=== PATIENT | female | born 1980 | race Two or more races ===

== ENCOUNTER → 2016-11-04 | Outpatient (CLI) | payer SELFPAY | LOC: RAD 13:20 → MERGE 13:20 | PROVIDERS: ATTEND Nurse Practitioner Women's Health | DX: O36.80X0 Pregnancy with inconclusive fetal viability, not applicable or unspecified (principal) ==

== ENCOUNTER → 2016-11-04 | Outpatient (CLI) | payer SELFPAY | LOC: MERGE 12:00 → RAD 13:30 | PROVIDERS: ATTEND Nurse Practitioner Women's Health | DX: O36.80X0 Pregnancy with inconclusive fetal viability, not applicable or unspecified (principal) | CPT/HCPCS: 76805 ==

== ENCOUNTER → 2016-12-09 | Outpatient (CLI) | payer SELFPAY ==
--- NOTE | 2016-12-09 16:58 | RADIOLOGY REPORT (SQ) ---
EXAM DESCRIPTION: U/S OB 14+ TRNABD 1GES W/O DOP COMPLETED DATE/TIME: 12/09/2016 4:25 pm REASON FOR STUDY: ENCOUNTER FOR SUPERVISION OF OTHER NORMAL , SECOND TRIMESTER Z34.82 ENCO UNTER FOR SUPRVSN OF NORMAL , SECOND TRI COMPARISON: 11/04/2016 TECHNIQUE: Static and Dynamic grayscale imaging performed of gravid uterus using transabdominal appr oach. Additional selected color Doppler and spectral images recorded. All stored on PACS. LIMITATIONS: None. FINDINGS: EGA: 19 weeks 6 days. LOUIS: 04/29/2017. EFW: 324 G. PERCENTILE: Not applicable. Fetus less than or equal to 20 weeks gestation. ERIC: Largest pocket is 5.8 cm. PLACENTA: Anterior location. PRESENTATION: Breech. ANATOMY: HEART RATE: 147 beats per minute. FOUR CHAMBER HEART: Visualized. THREE VESSEL CORD: Yes. CORD INSERTION: Visualized. KIDNEYS AND BLADDER: Visualized. Appear normal. STOMACH: Visualized. Appears normal. SPINE: Limited visualization due to positioning. No gross abnormalities. BRAIN AND LATERAL VENTRICLES: Inadequately visualized. OTHER: No other significant finding. MATERNAL ADNEXA: Maternal ovaries not visualized. CERVICAL LENGTH: Not measured. Closed. OTHER: No other significant finding. IMPRESSION: LIVING INTRAUTERINE . ESTIMATED GESTATIONAL AGE 19 WEEKS 6 DAYS. NO VISUALIZED ANOMALIES. Trimester of : Second trimester - 13 weeks 1 day to 27 weeks 6 days. TECHNICAL DOCUMENTATION: JOB ID: [id number] [employer]- All Rights Reserved
== END ==
LOC: RAD 15:14
PROVIDERS: ATTEND Nurse Practitioner Women's Health
DX: Z34.82 Encounter for supervision of other normal pregnancy, second trimester (principal)
CPT/HCPCS: 76805

== ENCOUNTER → 2016-12-31 | Outpatient (CLI) | payer SELFPAY ==
--- NOTE | 2016-12-31 15:17 | RADIOLOGY REPORT (SQ) ---
EXAM DESCRIPTION: U/S OB LIMITED COMPLETED DATE/TIME: 12/31/2016 2:23 pm REASON FOR STUDY: ENCOUNTER FOR SUPERVISON OF OTHER NORMAL , SECOND TRIMESTER Z34.82 ENCOU NTER FOR SUPRVSN OF NORMAL , SECOND TRI COMPARISON: 12/09/2016 TECHNIQUE: Limited transabdominal grayscale ultrasound for evaluation of specific requested obstetri marino parameters. LIMITATIONS: None FINDINGS: Additional imaging of the brain and spine was performed. No abnormalities. Anterior placenta, three-vessel cord, breech orientation, normal amniotic fluid volume. Estimated fe angelica weight today, 540 g, at the 66th percentile. IMPRESSION: LIMITED OBSTETRICAL ULTRASOUND WITH MEASURED PARAMETERS DELINEATED ABOVE. Trimester of : Third trimester - 28 weeks to delivery. TECHNICAL DOCUMENTATION: JOB ID: [id number] [employer]- All Rights Reserved
== END ==
LOC: RAD 12:56
PROVIDERS: ATTEND Nurse Practitioner Women's Health
DX: Z34.82 Encounter for supervision of other normal pregnancy, second trimester (principal)
CPT/HCPCS: 76815

== ENCOUNTER 2017-03-26 16:40 | Emergency (ER) | payer SELFPAY ==
[2017-03-26 16:55] VITALS: BP 117/59
--- NOTE | 2017-03-26 17:53 | ER Document Report ---
ED General - General Chief Complaint: Dizziness Stated Complaint: DIZZINESS, BLOOD PRESSURE PROBLEMS Time Seen by Provider: 03/26/17 17:52 Mode of Arrival: Ambulatory Information source: Patient Notes: 36-year-old female who is approximately 33 weeks presents with complaints of abdominal pain. Patient notes a clicking sensation consistent with contractions. Patient denies any fevers or chills nausea vomiting or diarrhea Friend who is a [employer] was concerned about high blood pressure patient's blood pressure here is normal TRAVEL OUTSIDE OF THE [place] IN LAST 30 DAYS: No - HPI Onset: Yesterday Onset/Duration: Sudden Quality of pain: Cramping Severity: Mild Pain Level: 1 Associated symptoms: Other Exacerbated by: Denies Relieved by: Denies Similar symptoms previously: No Recently seen / treated by doctor: No - Related Data Allergies/Adverse Reactions: No Known Allergies Allergy (Verified 03/26/17 16:52) Past Medical History - Social History Smoking Status: Never Smoker Cigarette use (# per day): No Chew tobacco use (# tins/day): No Smoking Education Provided: No Family History: Reviewed & Not Pertinent Patient has suicidal ideation: No Patient has homicidal ideation: No Renal/ Medical History: Denies: Hx Peritoneal Dialysis - Immunizations Hx Diphtheria, Pertussis, Tetanus Vaccination: No Review of Systems - Review of Systems Notes: REVIEW OF SYSTEMS: CONSTITUTIONAL : Denies fever, chills, or sweats. Denies recent illness. EENT: Denies eye, ear, throat, or mouth pain or symptoms. Denies nasal or sinus congestion or discharge. Denies throat, tongue, or mouth swelling or difficulty swallowing. CARDIOVASCULAR: Denies chest pain. Denies palpitations or racing or irregular heart beat. Denies ankle edema. RESPIRATORY: Denies cough, cold, or chest congestion. Denies shortness of breath, difficulty breathing, or wheezing. GASTROINTESTINAL: Denies abdominal pain or distention. Denies nausea, vomiting , or diarrhea. Denies blood in vomitus, stools, or per rectum. Denies black, tarry stools. Denies constipation. GENITOURINARY: Denies difficulty urinating, painful urination, burning, frequency, blood in urine, or discharge. FEMALE GENITOURINARY: Denies vaginal bleeding, heavy or abnormal periods, irregular periods. Denies vaginal discharge or odor. MUSCULOSKELETAL: Denies back or neck pain or stiffness. Denies joint pain or swelling. SKIN: Denies rash, lesions or sores. HEMATOLOGIC : Denies easy bruising or bleeding. LYMPHATIC: Denies swollen, enlarged glands. NEUROLOGICAL: Denies confusion or altered mental status. Denies passing out or loss of consciousness. Denies dizziness or lightheadedness. Denies headache. Denies weakness or paralysis or loss of use of either side. Denies problems with gait or speech. Denies sensory loss, numbness, or tingling. Denies seizures. PSYCHIATRIC: Denies anxiety or stress. Denies depression, suicidal ideation, or homicidal ideation. ALL OTHER SYSTEMS REVIEWED AND NEGATIVE. PHYSICAL EXAMINATION: GENERAL: Well-appearing, well-nourished and in no acute distress. HEAD: Atraumatic, normocephalic. EYES: Pupils equal round and reactive to light, extraocular movements intact, conjunctiva are normal. ENT: Nares patent, oropharynx clear without exudates. Moist mucous membranes. NECK: Normal range of motion, supple without lymphadenopathy LUNGS: Breath sounds clear to auscultation bilaterally and equal. No wheezes rales or rhonchi. HEART: Regular rate and rhythm without murmurs ABDOMEN: Gravid abdomen baby obviously moving Female : deferred Musculoskeletal: Normal range of motion, no pitting or edema. No cyanosis. NEUROLOGICAL: Cranial nerves grossly intact. Normal speech, normal gait. Normal sensory, motor exams PSYCH: Normal mood, normal affect. SKIN: Warm, Dry, normal turgor, no rashes or lesions noted. Dictation was performed using [employer] voice recognition software Physical Exam - Vital signs Vitals: Temp Pulse Resp BP Pulse Ox 98.1 F 92 18 117/59 L 98 03/26/17 16:48 03/26/17 16:48 03/26/17 16:48 03/26/17 16:48 03/26/17 16:48 Course - Re-evaluation Re-evalutation: 03/26/17 17:52 pt is 34 weeks , bp is stable, cleared medically to go to OBGYN immediately for abd pain and contractions - Vital Signs Vital signs: Temp Pulse Resp BP Pulse Ox 98.1 F 92 18 117/59 L 98 03/26/17 16:48 03/26/17 16:48 03/26/17 16:48 03/26/17 16:48 03/26/17 16:48 Discharge - Discharge Clinical Impression: Abdominal pain affecting Condition: Stable Disposition: LABOR CHECK
== END 2017-03-26 17:55 | disposition admitted as inpatient to this hospital (09) ==
LOC: ER 16:40
DX: R10.9 Unspecified abdominal pain (principal); R42 Dizziness and giddiness; I10 Essential (primary) hypertension; Z3A.34 34 weeks gestation of pregnancy
CPT/HCPCS: 99283

== ENCOUNTER 2017-03-26 17:45 | Outpatient (CLI) | payer SELFPAY ==
[2017-03-26 19:10] LABS: APPEARANCE,URINE CLEAR; BILIRUBIN,URINE NEGATIVE (NEGATIVE); GLUCOSE, URINE NEGATIVE (NEGATIVE); KETONES,URINE NEGATIVE (NEGATIVE); LEUKOCYTE ESTERASE,URINE SMALL (NEGATIVE); NITRITE,URINE NEGATIVE (NEGATIVE); PROTEIN,URINE NEGATIVE (NEGATIVE); URINE SPECIFIC GRAVITY 1.006; UROBILINOGEN,URINE NEGATIVE mg/dL (<2.0)
[2017-03-26 19:16] LABS: URINE BARBITURATES SCREEN NEGATIVE; URINE METHADONE SCREEN NEGATIVE; URINE OPIATES LOW NEGATIVE; URINE PHENCYCLIDINE SCREEN NEGATIVE
== END 2017-03-26 19:09 | disposition home or self-care (01) ==
LOC: LC 17:45
PROVIDERS: ATTEND Obstetrics & Gynecology
PROC: 4A1HXCZ Monitoring of Products of Conception, Cardiac Rate, External Approach (ICD-10-PCS; principal; 2017-03-26)
DX: Z34.93 Encounter for supervision of normal pregnancy, unspecified, third trimester (principal); Z36.89 Encounter for other specified antenatal screening; Z3A.35 35 weeks gestation of pregnancy
CPT/HCPCS: 80307; 81001

== ENCOUNTER 2018-01-05 08:02 | Day surgery (SDC) | payer SELFPAY ==
[~2018-01-05 08:02] MED LIST: DIPHENHYDRAMINE HCL 50 MG/ML VIAL ONE; EPINEPHRINE INJ 1 MG/10 ML DISP.SYRIN ONE; FENTANYL CITRATE INJ/PF 100 MCG/2 ML AMPUL ONE; FLUMAZENIL INJ 0.5 MG/5 ML VIAL ONE; GLUCAGON,HUMAN RECOMB 1 MG INJ ONE; NALOXONE HCL INJ/PF 0.4 MG/1 ML SDV ONE; ONDANSETRON HCL INJ/PF 4 MG/2 ML SDV ONE
[2018-01-05] MEDS: MIDAZOLAM 2 MG/2 ML INJ ONE ×3 (08:33→08:39)
--- NOTE | 2018-01-05 08:48 | Operative Report ---
Operative Report DATE OF SURGERY: 01/05/18 Operative Report: The risks, benefits and alternatives of the procedure including risks of bleeding, perforation requiring surgery are explained to the patient in detail and informed consent is obtained. The patient is brought back to the endoscopy suite and placed in a left, lateral decubital position. Conscious sedation medication is provided. A rectal examination is done which did not reveal any masses, tears or fissures. An Olympus videoscope is inserted into the patient' s rectum. The scope was then carefully advanced all the way to the cecum. Prep is good. Photodocumentation is obtained. Intubation of the terminal ileum is done. The scope was then sequentially pulled back via the various segments of the colon including the ascending colon, hepatic flexure, transverse colon, splenic flexure, descending colon and finding to the rectosigmoid portions of the colon. Retroflexion maneuvers performed. PREOPERATIVE DIAGNOSIS: Abnormal CT scan showing thickening on the right side of the colon and the terminal ileum area. POSTOPERATIVE DIAGNOSIS: Mild terminal ileitis status post biopsy OPERATION: Colonoscopy with biopsy SURGEON: TAMEKA ALVARADO ANESTHESIA: Moderate Sedation - 4 mg of Versed, 50 mcg of fentanyl. Conscious sedation monitoring time 30 minutes. TISSUE REMOVED OR ALTERED: As noted above COMPLICATIONS: None. ESTIMATED BLOOD LOSS: None. INTRAOPERATIVE FINDINGS: As noted above. PROCEDURE: Patient tolerated procedure well. No immediate postprocedure complications are noted. Patient discharged in good condition. Discharge date 01/05/2018. Discharge diet: Regular. Discharge activity: Regular. 2-3 week follow-up to discuss findings. Patient is instructed call the office or proceed to the emergency room should there be any further problems or questions. We will wait on the pathology.
[2018-01-05 10:18] VITALS: BP 97/65
== END 2018-01-05 10:15 | disposition home or self-care (01) ==
LOC: END 08:02
PROVIDERS: ATTEND Internal Medicine Gastroenterology
DX: K52.9 Noninfective gastroenteritis and colitis, unspecified (principal)
CPT/HCPCS: 45380; 88305 ×2; J2250; J3010; J0171; J1200; J1610; J2310; J2405; J3490

== ENCOUNTER → 2020-06-06 | Outpatient (CLI) | payer SELFPAY ==
--- NOTE | 2020-06-06 10:44 | WOMENS IMAGING REPORT ---
EXAM DESCRIPTION: BILAT SCREENING MAMMO W/CAD IMAGES COMPLETED DATE/TIME: 06/06/2020 9:37 am REASON FOR STUDY: Z12.31 ENCNTR SCREEN MAMMOGRAM FOR MALIGNANT NEOPLASM OF [id number] ENCNTR SCRE EN MAMMOGRAM FOR MALIGNANT NEOPLASM OF YVON COMPARISON: None. EXAM PARAMETERS: Standard craniocaudal and mediolateral oblique views of each breast recorded using digital acquisition. Read with the assistance of CAD. .[facility] - [employer] Version 9.2 LIMITATIONS: None. FINDINGS: RIGHT BREAST MASSES: No suspicious masses. CALCIFICATIONS: No new or suspicious calcifications. ARCHITECTURAL DISTORTION: None. ASYMMETRY: None noted. OTHER: No other significant findings. LEFT BREAST MASSES: Smooth mass with incomplete borders in the tail of the breast 9.5 cm deep to the nipple not s een on CC view. CALCIFICATIONS: No new or suspicious calcifications. ARCHITECTURAL DISTORTION: None. ASYMMETRY: None noted. OTHER: No other significant findings. IMPRESSION: Smooth mass left breast. 0 Incomplete: Needs Additional Imaging Evaluation and/or prior Mammograms for Comparison. BREAST DENSITY: b. There are scattered areas of fibroglandular density. BIRAD: ASSESSMENT: 0 Incomplete: Needs Additional Imaging Evaluation and/or prior Mammograms for C omparison. RECOMMENDATION: RECOMMENDED FOLLOW-UP: Ultrasound left breast. ADDITIONAL RECOMMENDATION- No additional recommendations. The patient will be contacted for additional imaging. COMMENT: The patient has been notified of the results by letter per MQSA requirements. Additional no tification policies are in place for contacting patient with suspicious or incomplete findings. Quality ID #[id number]: The [employer] recommends an annual screening mammogram for women aged 40 years or over. This facility utilizes a reminder system to ensure that all patients receive reminder letters, and/or direct phone calls for appointments. This includes reminders for routine scr eening mammograms, diagnostic mammograms, or other Breast Imaging Interventions when appropriate. Th is patient will be placed in the appropriate reminder system. TECHNICAL DOCUMENTATION: FINDING NUMBER: (1) ASSESSMENT: (1) JOB ID: [id number] [facility]- All Rights Reserved Reading location - IP/workstation name: [email or web address]
== END ==
LOC: WI 09:00
PROVIDERS: ATTEND Obstetrics & Gynecology
DX: Z12.31 Encounter for screening mammogram for malignant neoplasm of breast (principal); N63.10 Unspecified lump in the right breast, unspecified quadrant
CPT/HCPCS: 77067